=== PATIENT | male | born 1995 | race Caucasian/White ===

== ENCOUNTER 2017-05-04 17:17 | Emergency (ER) | payer BC, OTHER ==
[~2017-05-04] VITALS: Ht 193 cm; Wt 104.3 kg
--- OUTSIDE RECORDS SUMMARY | 2017-05-04 17:23 | XMS REPORT ---
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 Unknown Non Drug Allergy Jul, Unknown SOCIAL HISTORY No smoking Hx information available PLAN OF CARE Activity Details Follow Up prn Reason:null VITAL SIGNS MEDICATIONS Medication Instructions Dosage Frequency Start Date End Date Duration Status Gentamicin Sulfate 0.3 % Ophthalmic Twice a day 1 drop into affected eye 12h Jul, 7 days Active RESULTS No Results PROCEDURES Procedure Date Ordered Related Diagnosis Body Site NEW PATIENTLEVEL I July 21, 2016 DOC MEDS VERIFIED W/PT OR RE July 21, 2016 IMMUNIZATIONS No Known Immunizations
--- NOTE | 2017-05-04 18:49 | Diagnostic Imaging Report ---
INDICATION: Screening for MRI. EXAMINATION: Skull. FINDINGS: No metallic orbital foreign body is identified. IMPRESSION: Negative. Dictated by: Dictated on workstation # [id number]
--- NOTE | 2017-05-04 19:23 | ED EENT ---
History of Present Illness General Chief Complaint: Facial Problems Stated Complaint: JAW PAIN;PAIN Nursing Triage Note: Pt has a known left mandible fracture suffered early Tuesday morning. Pt was at the dentist office today and was dianosed with the fracture. Source: patient Exam Limitations: no limitations ([place]) History of Present Illness Date Seen by Provider: May 04, 2017 Time Seen by Provider: 17:35 Initial Comments 22-year-old male patient presents to the emergency department complaints of left jaw swelling and pain. Patient was seen by Dr. Castillo and sent to the emergency department for findings on Panorex of a left mandibular fracture. Patient reports falling while on spring in [place], [place] one week ago. Was seen at the emergency department. Is not sure exactly what tests were run as he was intoxicated at that time. Timing/Duration: last week Location: mouth, facial Prearrival Treatment: over the counter meds Modifying Factors: Worse With Other (patient reports feeling the front lower teeth "spread apart" with chewing.) ([place]) Allergies and Home Medications Allergies Coded Allergies: No Known Drug Allergies (Unverified , 05/04/17) Patient Home Medication List Home Medication List Reviewed: Yes (BLANE COBB) Review of Systems Constitutional: no symptoms reported Eyes: No Symptoms Reported Ears: No Symptoms Reported Nose: no symptoms reported Mouth: see HPI Throat: no symptoms reported Respiratory: no symptoms reported Cardiovascular: no symptoms reported Musculoskeletal: No back pain, No neck pain Skin: no symptoms reported Neurological: Denies Headache, Denies Numbness, Denies Paresthesia, Denies Seizure, Denies Tingling, Denies Weakness ([place]) All Other Systems Reviewed Negative Unless Noted: Yes (Negative excepted noted.) ([place]) Past Bbkgoqq-Xehqqa-Cyrgjp Hx Patient Social History Alcohol Use: Denies Use Recreational Drug Use: No Smoking Status: Never a Smoker Recent Foreign Travel: No Contact w/Someone Who Travel: No Recent Infectious Disease Expo: No ([place]) Surgeries History of Surgeries: No ([place]) Respiratory History of Respiratory Disorde: No ([place]) Cardiovascular History of Cardiac Disorders: No ([place]) Neurological History of Neurological Disord: No ([place]) Genitourinary History of Genitourinary Disor: No ([place]) Gastrointestinal History of Gastrointestinal Di: No ([place]) Musculoskeletal History of Musculoskeletal Dis: No ([place]) Endocrine History of Endocrine Disorders: No ([place]) HEENT History of HEENT Disorders: No ([place]) Cancer History of Cancer: No ([place]) Psychosocial History of Psychiatric Problem: No ([place]) Integumentary History of Skin or Integumenta: No ([place]) Blood Transfusions History of Blood Disorders: No ([place]) Reviewed Nursing Assessment Reviewed/Agree w Nursing PMH: Yes ([place]) Family Medical History Significant Family History: No Pertinent Family Hx ([place]) Physical Exam Vital Signs Vital Signs - First Documented 05/04/17 17:30 Temp 98.1 Pulse 70 Resp 16 B/P (MAP) 128/86 (100) Pulse Ox 98 O2 Delivery Room Air ([place]ANE [place]BB) General Appearance: WD/WN, no apparent distress Eyes: bilateral eye normal inspection, bilateral eye PERRL, bilateral eye EOMI Ears: bilateral ear auricle normal, bilateral ear canal normal, bilateral ear TM normal Nose: normal inspection Mouth/Throat: pharynx normal, No excessive drooling, mandibular swelling (left mandibular swelling.), No maxillary swelling Neck: non-tender, full range of motion, supple, normal inspection Cardiovascular: regular rate, rhythm, no murmur Respiratory: lungs clear, normal breath sounds, no respiratory distress, no accessory muscle use 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 [address] Cali Silva from [place], will see patient tomorrow. No antibiotics in dictated at this time per Dr. Silva. Instructions provided to patient. Copy of reports and CD with scans given to patient to take to appt. 2199 Uncertain on Tetanus status, will give Tetanus. Discharge instructions and return precautions reviewed. All questions answered. (BLANE [place]BB) Diagnostic Imaging Diagonstic Imaging: MRI Plain Films/CT/US/NM/MRI: head Comments FINDINGS: Multiplanar, multisequence MRI of the facial bones was performed. No bony dislocation of the temporomandibular joints. No gross dislocation of the left temporomandibular disc at what is presumed to be closed mouth imaging is found. No mandibular fracture deformity is identified. A nondisplaced fracture at MRI would only be perceived based upon its marrow edema. At the curtis and condyles there is minimal marrow to detect edema. If this study is being performed to evaluate for cortical fractures of the mandible, facial CT should be performed. The partially visualized intracranial structures reveal no identifiable hemorrhage. There is no hemo-sinus. The partially visualized paranasal sinuses and mastoids are unremarkable. There is incidental slight lobular thickening of the membranes in the floors of the maxillaries. The visualized intracranial structures show no displacement of the midline structures. The orbits are seen on the coronal views and grossly unremarkable. IMPRESSION: Limited MRI over the facial bones with no MRI evidence of a fracture or obvious marrow edema. Nondisplaced cortical fractures of the mandible that would easily be occult at this exam and if that is the concern dedicated facial CT would be needed. No bony dislocation or appreciable soft tissue dislocations to the TMJs. No demonstrated hemo-sinus or definite orbital pathology. Dictated by: Dictated on workstation # [id number] Reviewed: Reviewed by Me (radiology report reviewed by me) Diagonstic Imaging: CT Plain Films/CT/US/NM/MRI: other (maxillofacial) Comments FINDINGS: There is mild mucosal thickening in the right maxillary sinus. The remaining visualized paranasal sinuses are clear. Mastoid air cells are clear. Nasal bone is intact. The zygomatic arches are intact. Pterygoid plates are intact. There is a nondisplaced fracture through the anterior aspect of the mandible just to the right of midline. There is also a fracture through the left mandibular ramus just below the mandibular condyle. Both of these are nondisplaced. The nasopharyngeal and oropharyngeal tissues are symmetric but without mass effect. The upper cervical spine is normal in appearance. The prevertebral soft tissues are within normal limits. IMPRESSION: 1. Nondisplaced fracture through the anterior aspect of the right mandible just to the right of midline. There is also a fracture just below the left mandibular condyle which is also nondisplaced. 2. Mucosal thickening in the right maxillary sinus. Dictated by: Dictated on workstation # [id number] Reviewed: Reviewed by Me (radiology report reviewed by me) Diagonstic Imaging: Xray Plain Films/CT/US/NM/MRI: other (skull) Comments FINDINGS: No metallic orbital foreign body is identified. IMPRESSION: Negative. Dictated by: Dictated on workstation # [id number] Reviewed: Reviewed by Me (radiology report reviewed by me) ([place]) Departure Impression Impression: Primary Impression: Fracture of mandible, closed Qualified Codes: S02.609A - Fracture of mandible, unspecified, initial encounter for closed fracture Disposition: 01 HOME, SELF-CARE Condition: Stable Departure-Patient Inst. Decision time for Depature: 22:00 (BLANE COBB) Referrals: NO,LOCAL PHYSICIAN (PCP) Primary Care Physician Patient Instructions: Jaw Fracture (DC) Add. Discharge Instructions: Ice to jaw, 20 min every 2 hours. Do Not Eat or Drink anything after midnight. Call Dr. Cali Silva's office tomorrow between 8-8:30, for appt. They will see you at [address] [place] [address] Take all paperwork and CD with studies to appointment. Tylenol 650 mg every 6 hours for pain All discharge instructions reviewed with patient and/or family. Voiced understanding. Work/School Note: School/Childcare Release Date Seen in the Emergency Department: May 04, 2017 Time Dismissed from Emergency Department: 22:00 Return to School: May 06, 2017 Restrictions: Need Release from Doctor Copy Copies To 1: CIRILO LEYVA MD, GRETCHEN L PA May 04, 2017 19:23 BLANE COBB May 04, 2017 22:02
--- NOTE | 2017-05-04 19:41 | Diagnostic Imaging Report ---
PROCEDURE: MR imaging of the brain without contrast. TECHNIQUE: Multiplanar, multisequence MR imaging of the brain was performed without contrast. INDICATION: Injury with mandibular fractures. FINDINGS: Multiplanar, multisequence MRI of the facial bones was performed. No bony dislocation of the temporomandibular joints. No gross dislocation of the left temporomandibular disc at what is presumed to be closed mouth imaging is found. No mandibular fracture deformity is identified. A nondisplaced fracture at MRI would only be perceived based upon its marrow edema. At the curtis and condyles there is minimal marrow to detect edema. If this study is being performed to evaluate for cortical fractures of the mandible, facial CT should be performed. The partially visualized intracranial structures reveal no identifiable hemorrhage. There is no hemo-sinus. The partially visualized paranasal sinuses and mastoids are unremarkable. There is incidental slight lobular thickening of the membranes in the floors of the maxillaries. The visualized intracranial structures show no displacement of the midline structures. The orbits are seen on the coronal views and grossly unremarkable. IMPRESSION: Limited MRI over the facial bones with no MRI evidence of a fracture or obvious marrow edema. Nondisplaced cortical fractures of the mandible that would easily be occult at this exam and if that is the concern dedicated facial CT would be needed. No bony dislocation or appreciable soft tissue dislocations to the TMJs. No demonstrated hemo-sinus or definite orbital pathology. Dictated by: Dictated on workstation # [id number]
--- NOTE | 2017-05-04 20:21 | Diagnostic Imaging Report ---
PROCEDURE: CT maxillofacial without contrast. TECHNIQUE: Multiple contiguous axial images were obtained through the facial bones without the use of intravenous contrast. INDICATION: Fall. FINDINGS: There is mild mucosal thickening in the right maxillary sinus. The remaining visualized paranasal sinuses are clear. Mastoid air cells are clear. Nasal bone is intact. The zygomatic arches are intact. Pterygoid plates are intact. There is a nondisplaced fracture through the anterior aspect of the mandible just to the right of midline. There is also a fracture through the left mandibular ramus just below the mandibular condyle. Both of these are nondisplaced. The nasopharyngeal and oropharyngeal tissues are symmetric but without mass effect. The upper cervical spine is normal in appearance. The prevertebral soft tissues are within normal limits. IMPRESSION: 1. Nondisplaced fracture through the anterior aspect of the right mandible just to the right of midline. There is also a fracture just below the left mandibular condyle which is also nondisplaced. 2. Mucosal thickening in the right maxillary sinus. Dictated by: Dictated on workstation # [id number]
[2017-05-04 22:11] VITALS: BP 150/87
[2017-05-04] MEDS ORDERED: TETANUS,DIPTH,PERTUSS P/F (BOOSTRIX) 0.5 ML VIAL IM ONE ×2 (22:13→22:15)
== END 2017-05-04 22:10 | disposition home or self-care (01) ==
LOC: ER 17:20
DX: S02.609A Fracture of mandible, unspecified, initial encounter for closed fracture (principal); Z23 Encounter for immunization; W18.30XA Fall on same level, unspecified, initial encounter
CPT/HCPCS: 70250; 70486; 70551; 90471; 90715